=== PATIENT | female | born 1965 | race Caucasian/White ===

== ENCOUNTER 2020-01-30 12:17 | Emergency (ER) | payer OTHER, BC ==
[~2020-01-30] VITALS: Ht 162.6 cm; Wt 61.7 kg
[2020-01-30] MEDS ORDERED: SUDOGEST120 MG PO (12:37)
[2020-01-30] MEDS ORDERED: NAPROSYN500 MG PO (14:43)
--- NOTE | 2020-01-30 20:07 | EKG ---
[facility] [address] [facility] [place], [place] [address] Signed Sinus tachycardia Possible Left atrial enlargement Left ventricular hypertrophy Abnormal ECG No previous ECGs available Confirmed by JOHAN CODY DO ([id number]) on 01/30/2020 8:07:28 PM Electronically Signed By: JOHAN CODY DO 01/30/20 2007 PATIENT NAME: MALLIKA CALABRESE Electrocardiogram DATE OF : 61 PHYSICIAN: JOHAN CODY DO REPORT #: [id number] REPORT IS CONFIDENTIAL AND NOT TO BE RELEASED WITHOUT AUTHORIZATION
--- NOTE | 2020-01-31 07:35 | PATH ---
[facility] [address] [facility] [place], [place] [address] Signed ORDERING PHYSICIAN: Kevin Jarrett MD PATIENT NAME: MALLIKA CALABRESE GENDER: Chris : 1965 SPECIMEN(S): MOLECULAR PATHOLOGY RESULTS: SARS-CoV-2 Not Detected ADDITIONAL NOTES.: The [place] Fusion SARS-CoV-2 Assay is a multiplex real-time PCR (RT-PCR) in vitro diagnostic test intended for the qualitative detection of RNA from SARS-CoV-2 from individuals who meet COVID-19 clinical and/or epidemiological criteria. In general, SARS-CoV-2 RNA can be detected during the acute phase of infection. Positive results indicate the presence of SARS-CoV-2 RNA. Clinical correlation with patient history and other diagnostic information is necessary to determine patient infection status. Positive results do not rule out bacterial infection or co-infection with other viruses. Negative results do not preclude SARS-CoV-2 infection and should not be used as the sole basis for patient management decisions. Negative results must be combined with other clinical observations, patient history, and epidemiological information. The [place] Fusion SARS-CoV-2 Assay is not yet approved or cleared by the [place] FDA. When there are no FDA-approved or cleared tests available, and other criteria are met, FDA can make tests available under an emergency access mechanism called an Emergency Use Authorization (EUA). The EUA for this test is supported by the [place] of Health and Human Service's (HHS's) declaration that circumstances exist to justify the emergency use of in vitro diagnostics for the detection and/or diagnosis of the virus that causes COVID-19. This EUA will remain in effect for the duration of the COVID-19 declaration justifying emergency of IVDs, unless it is terminated or revoked by FDA, after which the test may no longer be used. The [place] Fusion SARS-CoV-2 Assay is for use only under EUA in US laboratories certified under the Clinical Laboratory Improvement Amendments of 1988 (CLIA) to perform high complexity tests. [facility] is certified under CLIA to perform high complexity PATIENT NAME: MALLIKA CALABRESE PATHOLOGY DATE OF : 61 REPORT #: [id number] PHYSICIAN: CHANG IVY PCP: MARCO MOE MD REPORT IS CONFIDENTIAL AND NOT TO BE RELEASED WITHOUT AUTHORIZATION [address] [address] Signed clinical laboratory testing. PERFORMING LABORATORY.: Molecular testing was performed by [facility] [address] [place], [place] [address] [address] (Leg Assembler: Braxton Shrestha D.O.; CLIA#: [id number]) Diagnostician: System Interface Pathologist Electronically Signed 01/31/2020 Copies: ~ PATIENT NAME: MALLIKA CALABRESE PATHOLOGY DATE OF : [birth year] REPORT #: [id number] PHYSICIAN: CHANG IVY PCP: MARCO MOE MD REPORT IS CONFIDENTIAL AND NOT TO BE RELEASED WITHOUT AUTHORIZATION
== END 2020-01-30 15:43 | disposition home or self-care (01) ==
LOC: ED 12:17
DX: M94.0 Chondrocostal junction syndrome [Tietze] (principal); F17.200 Nicotine dependence, unspecified, uncomplicated; Z88.1 Allergy status to other antibiotic agents; Z88.8 Allergy status to other drugs, medicaments and biological substances
CPT/HCPCS: 71045; 80053; 83735; 84484; 85025; 93005; 93010; 99285-25; C9803

== ENCOUNTER 2022-06-20 05:50 | Day surgery (SDC) | payer OTHER, BC ==
[~2022-06-20] VITALS: Ht 162.6 cm; Wt 61.4 kg
[~2022-06-20 05:50] MED LIST: BAYER CHEWABLE81 MG PO; BUSPIRONE HCL5 MG PO; COZAAR50 MG PO; LIPITOR20 MG PO; NAPROSYN500 MG PO; NITROSTAT0.4 MG SL; SUDOGEST120 MG PO
--- NOTE | 2022-06-20 08:07 | NUR ---
06/20/22 0807 Briseida Garzon 0802- PT ARRIVES TO PACU NONAROUSABLE TO STIMULI. RESP EVEN AND UNLABORED. OXYGEN SAT MID TO HIGH 90'S ON RA.
--- NOTE | 2022-06-20 10:05 | OR ---
[facility] [address] [place], [place] [address] Signed DATE OF OPERATION: 06/20/2022 SURGEON: Diogenes Weston MD PREOPERATIVE DIAGNOSES: 1. Screening. 2. Tortuous sigmoid colon. 3. External hemorrhoids. POSTOPERATIVE DIAGNOSES: 1. Torturous sigmoid colon. 2. Minimal to moderate external hemorrhoids. 3. Minimal internal hemorrhoids. PROCEDURE: Colonoscopy without biopsy. ESTIMATED BLOOD LOSS: None. INDICATIONS: Cindy is a 56-year-old female, asked to see me for a followup colonoscopy. She has no family history of colon cancer or polyps. I helped her with a colonoscopy in 2011 at the age of 46. She had external hemorrhoids and a very angulated sigmoid colon. The Versed and fentanyl simply was not enough. We had to bring in an anesthesia provider for propofol infusion. After that, we were able to pass the scope up to the cecum. She did well. We then asked her to come in 10 years for a followup screening colonoscopy. She currently has no lower GI complaints. She does have significant coronary artery disease and peripheral arterial disease. She follows along with Dr. Remberto Wild as her project management it specialist. 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 She may need a neurosurgeon to help with the carotid endarterectomy at some point in the future. Apparently, her family has significant atherosclerotic disease. In that regard, she clearly needs monitored anesthesia care to avoid changes in her blood pressure as well as to have adequate sedation to pass the scope through the sigmoid colon. We did send her for some preoperative blood work and an EKG as well. We did review her CT angiogram as well as her echocardiogram. In the office, I gave her a pamphlet on colonoscopy. We had reviewed the nature of the test. There is risk including, but not limited to gas bloating, crampy abdominal pain, bleeding, perforation requiring surgery, and missed diagnosis. She had expressed understanding and wished to proceed. Electronically Signed By: DIOGENES WESTON MD 06/20/22 1005 PATIENT NAME: MALLIKA CALABRESE OPERATIVE REPORT DATE OF : 61 REPORT #: [id number] PHYSICIAN: DIOGENES WESTON MD PCP: COREY GUERRERO PAC REPORT IS CONFIDENTIAL AND NOT TO BE RELEASED WITHOUT AUTHORIZATION [facility] [address] [place] [id number] Signed PROCEDURE NOTE: Mallika was taken into our endoscopy suite and placed in the left lateral decubitus position. She was given monitored anesthesia care with propofol infusion per our nurse armature winder repair helper. A digital rectal exam was performed and she does have minimal to moderate external circumferential hemorrhoids. She had good sphincter tone. There were no masses. The adult colonoscope was introduced and advanced up into the sigmoid colon. We had to pause and increase our propofol infusion. After that, we carefully and slowly worked our colonoscope through the sigmoid colon. Above the sigmoid colon, the lumen of the colon opened up nicely and we were able to pass the scope quite readily around into the cecum itself. Her prep was quite excellent. We could easily see the appendiceal orifice and the ileocecal valve. The scope was then slowly withdrawn. We took pictures throughout for photodocumentation. She had no diverticulosis. There were no polyps. The rectum was unremarkable. She does have the tortuous sigmoid colon. Upon retroflexion of the scope, she has very minimal internal hemorrhoid tissue. After this, the gas was suctioned out and the colonoscope removed. Mallika tolerated the procedure quite nicely with her propofol infusion. RECOMMENDATIONS: I will see Mallika back in 10 years for repeat colonoscopy. She will always need monitored anesthesia care with propofol infusion as described above. Diogenes Weston MD ALB/MODL /[id number] cc: MD Diogenes Olivia MD Danielle Addleman, PA Copies: REMBERTO WILD MD Electronically Signed By: DIOGENES WESTON MD 06/20/22 1005 PATIENT NAME: MALLIKA CALABRESE OPERATIVE REPORT DATE OF : 61 REPORT #: [id number] PHYSICIAN: DIOGENES WESTON MD PCP: COREY GUERRERO PAC REPORT IS CONFIDENTIAL AND NOT TO BE RELEASED WITHOUT AUTHORIZATION [facility] [address] [facility] [place] [address] Signed DIOGENES WESTON MD ~ Electronically Signed By: DIOGENES WESTON MD 06/20/22 1005 PATIENT NAME: MALLIKA CALABRESE OPERATIVE REPORT DATE OF : 61 REPORT #: [id number] PHYSICIAN: DIOGENES WESTON MD PCP: COREY GUERRERO PAC REPORT IS CONFIDENTIAL AND NOT TO BE RELEASED WITHOUT AUTHORIZATION
--- NOTE | 2022-06-20 10:18 | NUR ---
PT ALERT, ORIENTED AND MENTIONED HER WILL RETURN FOR DC. PT IS PLEASANT, THANKED ME FOR VISITING. C/O BRIGHT LIGHTS, TURNED DOWN. HAD JESSI GRIFFIN GET WARM BLANKET FOR PT. SHE REQUESTED PRAYER, WILL FOLLOW
== END 2022-06-20 08:40 | disposition home or self-care (01) ==
LOC: DS 05:50
PROVIDERS: ATTEND Colon & Rectal Surgery
PROC: 0DJD8ZZ Inspection of Lower Intestinal Tract, Via Natural or Artificial Opening Endoscopic (ICD-10-PCS; principal; 2022-06-20 07:30)
DX: Z12.11 Encounter for screening for malignant neoplasm of colon (principal); K64.8 Other hemorrhoids; K64.4 Residual hemorrhoidal skin tags; I10 Essential (primary) hypertension; I77.9 Disorder of arteries and arterioles, unspecified; E78.00 Pure hypercholesterolemia, unspecified; F41.9 Anxiety disorder, unspecified; Z79.82 Long term (current) use of aspirin; Z79.899 Other long term (current) drug therapy
CPT/HCPCS: J2704; J7121

== ENCOUNTER 2023-04-29 10:53 | Emergency (ER) | payer OTHER, BC ==
[~2023-04-29] VITALS: Ht 162.6 cm; Wt 68.5 kg
[2023-04-29] MEDS ORDERED: HYDROCODON-ACE1 EA10 PO (11:43)
[2023-04-29] MEDS ORDERED: LIDODERM1 EACH TOP (11:43)
[2023-04-29 12:17] VITALS: BP 188/98
== END 2023-04-29 12:19 | disposition home or self-care (01) ==
LOC: ED 10:53
DX: S22.32XA Fracture of one rib, left side, initial encounter for closed fracture (principal); I10 Essential (primary) hypertension; F17.200 Nicotine dependence, unspecified, uncomplicated; W10.9XXA Fall (on) (from) unspecified stairs and steps, initial encounter; Z88.1 Allergy status to other antibiotic agents; Z79.82 Long term (current) use of aspirin; Z79.899 Other long term (current) drug therapy
CPT/HCPCS: 71101; 73010

== ENCOUNTER 2024-02-18 05:52 | Emergency (ER) | payer OTHER, BC ==
[~2024-02-18] VITALS: Ht 162.6 cm; Wt 71.1 kg
[~2024-02-18 05:52] MED LIST changes: +HYDROCODON-ACE1 EA10 PO; +LIDODERM1 EACH TOP
[2024-02-18] MEDS ORDERED: NITROGLYCERIN 0.4 MG SUBL SL PRN (06:00)
[2024-02-18] MEDS ORDERED: FAMOTIDINE 20 MG/ 2 ML VIAL IV ONE ×2 (06:00→06:15)
[2024-02-18] MEDS ORDERED: ASPIRIN 81 MG CHEW PO ONE (06:00)
[2024-02-18 06:07] LABS: BASOPHILS 0.7 % (0-2); EOSINOPHILS 1.5 % (0-6); HEMATOCRIT 40.4 % (35.0-50.0); HEMOGLOBIN 13.5 g/dL (12.0-18.0); MCH 30.4 (27-36); MCHC 33.3 g/dl (30-36); MCV 91.4 fl (81-99); MONOCYTES 5.4 % (0-12); NEUTROPHILS 56.4 % (39-80); PLATELET COUNT 284 K/uL (140-440); RBC 4.42 M/ul (4.3-5.7); RDW 14.4 (10.5-15.0)
[2024-02-18] MEDS ORDERED: MORPHINE SULFATE 4 MG/ML VIAL IV ONE (06:15)
[2024-02-18] MEDS ORDERED: ondansetron HCL 4 MG/2 ML VIAL IV ONE (06:15)
[2024-02-18 06:34] LABS: ALBUMIN 4.1 g/dL (3.4-5.0); ALBUMIN/GLOBULIN RATIO 1.21 (1.1-2.4); ANION GAP 19.6 (7-21); BILIRUBIN, TOTAL 0.3 ng/dL (0.2-1.0); BUN/CREATININE RATIO 18.44 (6.0-28.6); CALCIUM 9.8 mg/dL (8.5-10.1); CREATININE, SERUM 1.03 mg/dL (0.55-1.02); MAGNESIUM 1.7 mg/dL (1.8-2.4); POTASSIUM 3.6 mmol/L (3.5-5.1); PROTEIN, TOTAL 7.5 g/dL (6.4-8.2)
[2024-02-18] MEDS ORDERED: LIDOCAINE & ANTACID 35 ML BTL PO ONE (07:15)
[2024-02-18] MEDS ORDERED: KETOROLAC TROME10 MG PO (08:43)
[2024-02-18] MEDS ORDERED: PROTONIX40 MG PO (08:43)
[2024-02-18] MEDS ORDERED: ONDANSETRON ODT8 MG SL (08:43)
[2024-02-18 08:49] VITALS: BP 110/67
--- NOTE | 2024-02-18 12:30 | EKG ---
[facility] [address] [facility] [place] [address] Signed Normal sinus rhythm Nonspecific ST abnormality Abnormal ECG When compared with ECG of 12-JUN-2022 15:58, No significant change was found Confirmed by Phong Isaacs MD ([id number]) on 02/18/2024 12:30:00 PM Electronically Signed By: PHONG ISAACS DO 02/18/24 1230 PATIENT NAME: MALLIKA CALABRESE Electrocardiogram DATE OF : [birth year] PHYSICIAN: PHONG ISAACS DO REPORT #: [id number] REPORT IS CONFIDENTIAL AND NOT TO BE RELEASED WITHOUT AUTHORIZATION
--- NOTE | 2024-02-18 12:30 | EKG ---
[facility] [address] [facility] [place] [address] Signed Normal sinus rhythm Normal ECG When compared with ECG of 18-FEB-2024 05:56, (Unconfirmed) No significant change was found Confirmed by Phong Isaacs MD ([id number]) on 02/18/2024 12:30:06 PM Electronically Signed By: PHONG ISAACS DO 02/18/24 1230 PATIENT NAME: MALLIKA CALABRESE Electrocardiogram DATE OF : 61 PHYSICIAN: PHONG ISAACS DO REPORT #: [id number] REPORT IS CONFIDENTIAL AND NOT TO BE RELEASED WITHOUT AUTHORIZATION
== END 2024-02-18 08:49 | disposition home or self-care (01) ==
LOC: ED 05:52
PROVIDERS: Internal Medicine
DX: R07.2 Precordial pain (principal); K80.20 Calculus of gallbladder without cholecystitis without obstruction; I10 Essential (primary) hypertension; F17.200 Nicotine dependence, unspecified, uncomplicated; Z79.82 Long term (current) use of aspirin; Z79.899 Other long term (current) drug therapy; Z88.1 Allergy status to other antibiotic agents; Z88.8 Allergy status to other drugs, medicaments and biological substances
CPT/HCPCS: 36415; 71045; 76705; 80053; 83735; 83880; 84484; 85025; 85379; 93005; 93010; 96374; 96375; 99285-25; A9270; J2270; J2405